=== PATIENT | female | born 1935 ===

== ENCOUNTER 2017-04-22 17:08 | Inpatient (IN) | payer MEDICARE, BC ==
[~2017-04-22] VITALS: Ht 157.5 cm; Wt 59.0 kg
[2017-04-22 16:30] VITALS: BP 149/74
[2017-04-22] MEDS ORDERED: FURO20TA4 PO (17:21)
[2017-04-22] MEDS ORDERED: LINA5TAB PO (17:21)
[2017-04-22] MEDS ORDERED: PANT40TA4 PO (17:21)
[2017-04-22] MEDS ORDERED: ATOR20TA PO (17:21)
[2017-04-22] MEDS ORDERED: VALS40TA4 PO (17:21)
[2017-04-22] MEDS ORDERED: DULO20CA PO (17:21)
[2017-04-22] MEDS ORDERED: CARV40CP PO (17:21)
[2017-04-22] MEDS ORDERED: CLOP75TA33 PO (17:21)
[2017-04-22] MEDS ORDERED: LIRA0.6P2 SUBCUT (17:21)
[2017-04-22] MEDS ORDERED: ISOS30TA6 PO (17:21)
[2017-04-22] MEDS ORDERED: ALLO100T PO (17:21)
[2017-04-22] MEDS ORDERED: PRAM0.253 PO (17:21)
[2017-04-22] MEDS ORDERED: Z GUARD REMEDY PASTE 57 GM TUBE TOP PRN (17:30)
--- NOTE | 2017-04-22 18:53 | NUR ---
pt arrived at 1630 in an ambulance. pt was transported with the use of a gurney. pt vitals bp 149/74 t 97.6 p 74 rr 18 02 97% room air. pt shown no signs of acute distress. pt is alert and oriented x4 no apparent signs of injury. all belongings reconciled. all pertinent assessments done. will continue to monitor patients for any signs of distress.
--- NOTE | 2017-04-22 19:30 | NUR ---
Report received. Patient came in today from [facility] for rehab (was in [facility] for CHF and NSTEMI). AAO, able to communicate needs fairly well. Denies pain and discomfort. Addendum: 04/23/17 at 0210 by ALEX MELGOZA RN Amended: Links added.
[2017-04-22 20:06] VITALS: BP 147/64
[2017-04-22] MEDS ORDERED: DEXTROSE 50% 50 ML DISP.SYRIN IV PRN (20:15)
[2017-04-22] MEDS: BLOOD SUGAR DIAGNOSTIC 1 EACH STRIP VI SCH (21:06)
[2017-04-22] MEDS: ATORVASTATIN 20 MG TABLET PO SCH (21:06)
--- NOTE | 2017-04-22 22:30 | NUR ---
Up to the BR with assist. Voided without difficulty. Gait steady but patient appears cautious. Advised to call for help and assistance when needing to go to the BR. Patient verbalized understanding. Addendum: 04/23/17 at 0217 by ALEX MELGOZA RN Amended: Links added.
[2017-04-23] MEDS: BLOOD SUGAR DIAGNOSTIC 1 EACH STRIP VI SCH ×4 (06:41→22:03)
--- NOTE | 2017-04-23 06:50 | NUR ---
Accucheck=82. Patient awake, skin warm and dry. [place] juice given per patient's request. NAD noted.
[2017-04-23 08:00] VITALS: BP 144/54
[2017-04-23] MEDS ORDERED: CARVEDILOL PHOSPHATE 80 MG PO SCH (09:00)
[2017-04-23 09:21] LABS: BASOPHILS # (AUTO) 0.1 K/uL (0.0-8.0); BASOPHILS % (AUTO) 0.9 % (0.0-2.0); EOSINOPHILS # (AUTO) 0.2 K/uL (0.0-0.7); EOSINOPHILS % (AUTO) 3.2 % (0.0-7.0); HEMATOCRIT 30.3 % (37-47); LYMPHOCYTES # (AUTO) 0.7 K/UL (0.8-4.8); LYMPHOCYTES % (AUTO) 11.1 % (20.5-51.5); MEAN CORPUSCULAR HEMOGLOBIN 31.5 UUG (27.0-31.0); MEAN CORPUSCULAR HGB CONC 33 g/dL (32.0-37.0); MEAN CORPUSCULAR VOLUME 95.5 FL (81.0-99.0); MONOCYTES # (AUTO) 0.4 K/UL (0.1-1.30); MONOCYTES % (AUTO) 7.2 % (0.0-11.0); NEUTROPHILS # (AUTO) 4.8 K/UL (1.8-8.9); NEUTROPHILS % (AUTO) 77.6 % (38.5-71.5); PLATELET COUNT (AUTO) 214 K/UL (150-450); RED BLOOD CELL COUNT(AUTO) 3.17 MIL/UL (4.2-5.4); WHITE BLOOD COUNT (AUTO) 6.2 K/UL (4.0-11.2)
[2017-04-23 09:35] LABS: ALANINE AMINOTRANSFERASE 16 U/L (14-59); ALKALINE PHOSPHATASE 111 U/L (50-136); ASPARTATE AMINOTRANSFERASE 26 U/L (15-37); BILIRUBIN,TOTAL 0.8 mg/dL (0.2-1.0); CARBON DIOXIDE 29 mmol/L (21-32); CHLORIDE 96 mmol/L (98-107); CREATININE 4.6 mg/dL (0.6-1.3); GLUCOSE 171 mg/dL (74-106); MAGNESIUM 2.1 mg/dL (1.8-2.4); PHOSPHOROUS 4.2 mg/dL (2.5-4.9); POTASSIUM 5.1 mmol/L (3.5-5.1); TOTAL PROTEIN, SERUM 7.6 g/dL (6.4-8.2); UREA NITROGEN, BLOOD 62 mg/dL (7-18)
[2017-04-23] MEDS: PANTOPRAZOLE SODIUM 40 MG TABLET.DR PO SCH ×2 (09:47→17:53)
[2017-04-23] MEDS: ALLOPURINOL 100 MG TABLET PO SCH (09:48)
[2017-04-23] MEDS: FUROSEMIDE 20 MG TABLET PO SCH ×2 (09:48→17:02)
[2017-04-23] MEDS: ISOSORBIDE MONONITRATE 30 MG TAB.SR.24H PO SCH (09:51)
[2017-04-23] MEDS: CARVEDILOL 25 MG TABLET PO SCH ×2 (09:51→17:07)
[2017-04-23] MEDS: VALSARTAN 40 MG TABLET PO SCH (09:52)
[2017-04-23] MEDS: DULOXETINE 20 MG CAPSULE.DR PO SCH (09:53)
[2017-04-23] MEDS: CLOPIDOGREL 75 MG TABLET PO SCH (09:53)
[2017-04-23] MEDS: PRAMIPEXOLE 0.25 MG TABLET PO SCH ×2 (09:54→17:02)
[2017-04-23] MEDS: LINAGLIPTIN 5 MG TABLET PO SCH (10:07)
[2017-04-23] MEDS: INSULIN REGULAR, HUMAN 300 UNIT/3 ML VIAL SQ PRN ×2 (12:22→17:10)
--- NOTE | 2017-04-23 13:40 | NUR ---
PT ASSESSED AND VITALS TAKEN . BP ELEVATED. PROVIDED MEDICATIONS PRESCRIBED. PT HAS NO NEW INJURIES. PT EVALUATED BY PT. ACCU CHECKS DONE AND PROVIDED INSULIN COVERAGE ORDERED. WILL CONTINUE MONITOR FOR DISTRESS.
--- NOTE | 2017-04-23 14:44 | NUR ---
Rehab Team Conference 04/23/17
--- NOTE | 2017-04-23 19:00 | NUR ---
pt continues to be stable to during shift. pt blood pressure stable. however afternoon dose of carvidelol not given due to decreased blood pressure 111/ 48s. pt states that she takes diovan 40mg instead. pt helped when needed. pt ate meals and took medications as prescribed. pt complains dizziness on transfer. pt seen by dr pierce. no new orders. will endorse to night monitor nurse.
[2017-04-23 20:00] VITALS: BP 140/64
[2017-04-23] MEDS: ATORVASTATIN 20 MG TABLET PO SCH (22:03)
[2017-04-23] MEDS: INSULIN REGULAR, HUMAN 300 UNITS/3 ML VIAL SQ PRN (22:07)
[2017-04-24] MEDS: BLOOD SUGAR DIAGNOSTIC 1 EACH STRIP VI SCH ×4 (07:01→20:45)
--- NOTE | 2017-04-24 07:15 | NUR ---
Patient complaining of 5/10 pain in right ankle. Patient says its from her arthritis and does not want pain medication for it. Will endorse to oncoming nurse for continuity of care.
--- NOTE | 2017-04-24 07:30 | NUR ---
Patient with physical therapy at this time, no distress noted, no complaints of pain.
[2017-04-24] MEDS: FUROSEMIDE 20 MG TABLET PO SCH ×2 (08:15→17:04)
[2017-04-24] MEDS: ALLOPURINOL 100 MG TABLET PO SCH (08:15)
[2017-04-24] MEDS: CLOPIDOGREL 75 MG TABLET PO SCH (08:15)
[2017-04-24] MEDS: PANTOPRAZOLE SODIUM 40 MG TABLET.DR PO SCH ×2 (08:15→17:04)
[2017-04-24] MEDS: PRAMIPEXOLE 0.25 MG TABLET PO SCH ×2 (08:15→17:04)
[2017-04-24] MEDS: LINAGLIPTIN 5 MG TABLET PO SCH (08:16)
[2017-04-24] MEDS: VALSARTAN 40 MG TABLET PO SCH (08:17)
[2017-04-24] MEDS: CARVEDILOL 25 MG TABLET PO SCH ×2 (08:17→17:34)
[2017-04-24] MEDS: ISOSORBIDE MONONITRATE 30 MG TAB.SR.24H PO SCH (08:17)
[2017-04-24 08:41] VITALS: BP 143/70
[2017-04-24] MEDS: DULOXETINE 20 MG CAPSULE.DR PO SCH (09:00)
[2017-04-24] MEDS: INSULIN REGULAR, HUMAN 300 UNIT/3 ML VIAL SQ PRN (11:46)
--- NOTE | 2017-04-24 13:20 | NUR ---
PT found sitting upright on the floor when SWEDGER was rounding. PT describes having felt dizzy prior to fall, and choosing to ambulate regardless. Call light remained within reach. PT stated she believed she used call button prior to attempting to independently ambulate to toilet, corporate legal secretary noted no calls were received during this time. Pt assessed following assistance back into bed. No distress or dizziness noted, v/s taken resulting in 127/60 bp, 69 HR, 16 RR, with family at bedside. MD notified and placed an order for XRay of coccyx. PT stable at this time, teaching regarding fall precautions implemented, with family at bedside. Will continue to monitor.
--- NOTE | 2017-04-24 18:41 | NUR ---
PT stable upon reassessment post fall. BP WNL. No new injuries or acute distress noted. XRay taken and awaiting results. PT complied with prescribed medications. Provided comfort care and safety measures, including PT teaching r/t fall precautions. Reminded PT to use call light and placed within reach. Will continue to monitor and endorse assistant shift supervisor.
--- NOTE | 2017-04-24 19:30 | NUR ---
nsg: pt received a/o x 4, in bed. denies pain or any discomfort. no acute distress noted. dvt pumps in place. bed alarm on. call light within reach. instructed pt to use call light for help.
[2017-04-24 20:00] VITALS: BP 133/67
[2017-04-24] MEDS: ATORVASTATIN 20 MG TABLET PO SCH (20:42)
--- NOTE | 2017-04-25 05:44 | NUR ---
nsg: no acute distress noted. denies discomfort. all needs attended.
[2017-04-25] MEDS: BLOOD SUGAR DIAGNOSTIC 1 EACH STRIP VI SCH ×4 (06:27→20:33)
[2017-04-25 08:00] VITALS: BP 137/54
[2017-04-25] MEDS: DULOXETINE 20 MG CAPSULE.DR PO SCH (09:00)
--- NOTE | 2017-04-25 09:15 | NUR ---
Pt awake, alert, and oriented. No s/s of any acute distress noted at this time. Pt actively engages with physical exercises with PT assistance. Pt seen by MD chrome tanner discussed BUN and creatinine levels and will continue to monitor. No new orders.
[2017-04-25] MEDS: FUROSEMIDE 20 MG TABLET PO SCH ×2 (09:18→16:51)
[2017-04-25] MEDS: CLOPIDOGREL 75 MG TABLET PO SCH (09:19)
[2017-04-25] MEDS: PANTOPRAZOLE SODIUM 40 MG TABLET.DR PO SCH ×2 (09:19→16:51)
[2017-04-25] MEDS: VALSARTAN 40 MG TABLET PO SCH (09:20)
[2017-04-25] MEDS: ALLOPURINOL 100 MG TABLET PO SCH (09:21)
[2017-04-25] MEDS: CARVEDILOL 25 MG TABLET PO SCH ×2 (09:21→17:55)
[2017-04-25] MEDS: PRAMIPEXOLE 0.25 MG TABLET PO SCH ×2 (09:22→16:51)
[2017-04-25] MEDS: ISOSORBIDE MONONITRATE 30 MG TAB.SR.24H PO SCH (09:22)
[2017-04-25] MEDS: LINAGLIPTIN 5 MG TABLET PO SCH (10:08)
[2017-04-25 10:13] LABS: ALANINE AMINOTRANSFERASE 13 U/L (14-59); ALKALINE PHOSPHATASE 106 U/L (50-136); ASPARTATE AMINOTRANSFERASE 28 U/L (15-37); BILIRUBIN,TOTAL 0.8 mg/dL (0.2-1.0); CARBON DIOXIDE 27 mmol/L (21-32); CHLORIDE 94 mmol/L (98-107); CREATININE 5.1 mg/dL (0.6-1.3); GLUCOSE 191 mg/dL (74-106); MAGNESIUM 2.1 mg/dL (1.8-2.4); PHOSPHOROUS 4.7 mg/dL (2.5-4.9); POTASSIUM 5.3 mmol/L (3.5-5.1); TOTAL PROTEIN, SERUM 7.5 g/dL (6.4-8.2); UREA NITROGEN, BLOOD 74 mg/dL (7-18)
[2017-04-25] MEDS: INSULIN REGULAR, HUMAN 300 UNIT/3 ML VIAL SQ PRN ×2 (12:09→17:29)
[2017-04-25 12:42] LABS: BASOPHILS % (AUTO) 0.6 % (0.0-2.0); EOSINOPHILS # (AUTO) 0.1 K/uL (0.0-0.7); HEMATOCRIT 27.8 % (37-47); HEMOGLOBIN 9.1 G/DL (12.0-16.0); LYMPHOCYTES # (AUTO) 0.8 K/UL (0.8-4.8); LYMPHOCYTES % (AUTO) 13.7 % (20.5-51.5); MEAN CORPUSCULAR HEMOGLOBIN 31.5 UUG (27.0-31.0); MEAN CORPUSCULAR HGB CONC 33 g/dL (32.0-37.0); MEAN CORPUSCULAR VOLUME 95.6 FL (81.0-99.0); MONOCYTES # (AUTO) 0.6 K/UL (0.1-1.30); MONOCYTES % (AUTO) 10.4 % (0.0-11.0); NEUTROPHILS # (AUTO) 4.4 K/UL (1.8-8.9); NEUTROPHILS % (AUTO) 73.3 % (38.5-71.5); PLATELET COUNT (AUTO) 219 K/UL (150-450); RED BLOOD CELL COUNT(AUTO) 2.91 MIL/UL (4.2-5.4); WHITE BLOOD COUNT (AUTO) 5.9 K/UL (4.0-11.2)
--- NOTE | 2017-04-25 13:26 | NUR ---
Curator Of Collections: SW met with pt at bedside to assess needs and provide support. Pt is an 81-year-old female admitted to ARU for weakness, functional decline and impaired mobility. Per pt, she agreed to be admitted to ARU due to MD recommendations. Pt is alert and oriented x4 and presented in a calm mood. She stated "My Doctor thought it would be a good idea for me to come and receive physical therapy." She also stated "my balance is not very good." Per pt, her goal is to "get strong" and "have strength in my legs." Pt reports to live home alone with a 24 hour caregiver. Per pt, she is not and has no children. She stated her only sibling was her brother, who is . Regardless, of no family available she reported to have a strong social support and many friends. Per pt, the only DME she utilizes at home is a cane. SW engaged in active listening. SW provided emotional support. SW provided supportive counseling related to reasons for hospitalization. SW will provide linkage to case management (home health) and resources (additional community resources).
--- NOTE | 2017-04-25 18:59 | NUR ---
Pt. has remained stable for the duration of this shift with no pain. Last v/s BP 134/58 and HR 65, BP medication given. All safety and comfort measures in place. Call light within reach. Educated Pt about ways to prevent falls. Pt. verbalizes understanding and agrees to use call light for assistance. will continue to monitor and endorse shift nurse manager of concerns.
--- NOTE | 2017-04-25 19:30 | NUR ---
Report received. Patient seen. Asleep but easily arouses to name. NAD noted. Fall precautions discussed with patient; verbalized understanding. Addendum: 04/25/17 at 2257 by ALEX MELGOZA RN Amended: Links added.
[2017-04-25 20:26] VITALS: BP 107/47
[2017-04-25] MEDS: ATORVASTATIN 20 MG TABLET PO SCH (20:32)
--- NOTE | 2017-04-25 20:35 | NUR ---
Adeeyqvsu=020; coverage given. Addendum: 04/25/17 at 2300 by ALEX MELGOZA RN Amended: Links added. Addendum: 04/25/17 at 2300 by ALEX MELGOZA RN Amended: Links added. Addendum: 04/25/17 at 2302 by ALEX MELGOZA RN Amended: Links added.
[2017-04-25] MEDS: INSULIN REGULAR, HUMAN 300 UNITS/3 ML VIAL SQ PRN (20:38)
--- NOTE | 2017-04-25 23:20 | NUR ---
Sleeping; NAD noted. On fall precautions.
[2017-04-26] MEDS: BLOOD SUGAR DIAGNOSTIC 1 EACH STRIP VI SCH ×4 (06:22→20:59)
--- NOTE | 2017-04-26 06:30 | NUR ---
Slept well during the night. NAD noted. Accucheck=92.
[2017-04-26 07:30] VITALS: BP 142/65
[2017-04-26] MEDS: FUROSEMIDE 20 MG TABLET PO SCH (08:55)
[2017-04-26] MEDS: PRAMIPEXOLE 0.25 MG TABLET PO SCH ×2 (08:55→16:57)
[2017-04-26] MEDS: ALLOPURINOL 100 MG TABLET PO SCH (08:55)
[2017-04-26] MEDS: VALSARTAN 40 MG TABLET PO SCH (08:56)
[2017-04-26] MEDS: CLOPIDOGREL 75 MG TABLET PO SCH (08:56)
[2017-04-26] MEDS: DULOXETINE 20 MG CAPSULE.DR PO SCH (08:56)
[2017-04-26] MEDS: LINAGLIPTIN 5 MG TABLET PO SCH (08:56)
[2017-04-26] MEDS: PANTOPRAZOLE SODIUM 40 MG TABLET.DR PO SCH ×2 (08:56→16:57)
[2017-04-26] MEDS: CARVEDILOL 25 MG TABLET PO SCH ×2 (08:56→17:26)
[2017-04-26] MEDS: ISOSORBIDE MONONITRATE 30 MG TAB.SR.24H PO SCH (08:56)
[2017-04-26 09:29] VITALS: BP 148/54
[2017-04-26] MEDS: INSULIN REGULAR, HUMAN 300 UNIT/3 ML VIAL SQ PRN (11:37)
[2017-04-26 20:57] VITALS: BP 121/56
[2017-04-26] MEDS: ATORVASTATIN 20 MG TABLET PO SCH (20:58)
[2017-04-26] MEDS: VOLTAREN GEL TOP PRN (23:39)
[2017-04-27] MEDS: BLOOD SUGAR DIAGNOSTIC 1 EACH STRIP VI SCH ×4 (07:15→20:58)
[2017-04-27 07:25] VITALS: BP 142/65
[2017-04-27 07:49] LABS: ALANINE AMINOTRANSFERASE 15 U/L (14-59); ALKALINE PHOSPHATASE 101 U/L (50-136); ASPARTATE AMINOTRANSFERASE 24 U/L (15-37); BILIRUBIN,TOTAL 0.7 mg/dL (0.2-1.0); CARBON DIOXIDE 27 mmol/L (21-32); CHLORIDE 96 mmol/L (98-107); GLUCOSE 83 mg/dL (74-106); MAGNESIUM 1.8 mg/dL (1.8-2.4); PHOSPHOROUS 4.8 mg/dL (2.5-4.9); POTASSIUM 5.1 mmol/L (3.5-5.1); TOTAL PROTEIN, SERUM 6.7 g/dL (6.4-8.2); UREA NITROGEN, BLOOD 74 mg/dL (7-18)
[2017-04-27 08:01] LABS: BASOPHILS % (AUTO) 0.6 % (0.0-2.0); EOSINOPHILS # (AUTO) 0.3 K/uL (0.0-0.7); EOSINOPHILS % (AUTO) 6.4 % (0.0-7.0); HEMATOCRIT 26.1 % (37-47); HEMOGLOBIN 8.6 G/DL (12.0-16.0); LYMPHOCYTES # (AUTO) 1.2 K/UL (0.8-4.8); LYMPHOCYTES % (AUTO) 22.4 % (20.5-51.5); MEAN CORPUSCULAR HEMOGLOBIN 31.6 UUG (27.0-31.0); MEAN CORPUSCULAR HGB CONC 33 g/dL (32.0-37.0); MONOCYTES # (AUTO) 0.8 K/UL (0.1-1.30); MONOCYTES % (AUTO) 15.1 % (0.0-11.0); NEUTROPHILS % (AUTO) 55.5 % (38.5-71.5); PLATELET COUNT (AUTO) 220 K/UL (150-450); RED BLOOD CELL COUNT(AUTO) 2.72 MIL/UL (4.2-5.4); WHITE BLOOD COUNT (AUTO) 5.3 K/UL (4.0-11.2)
[2017-04-27] MEDS: PANTOPRAZOLE SODIUM 40 MG TABLET.DR PO SCH ×2 (08:05→17:12)
[2017-04-27] MEDS: CLOPIDOGREL 75 MG TABLET PO SCH (08:05)
[2017-04-27] MEDS: ALLOPURINOL 100 MG TABLET PO SCH (08:05)
[2017-04-27] MEDS: LINAGLIPTIN 5 MG TABLET PO SCH (08:05)
[2017-04-27] MEDS: PRAMIPEXOLE 0.25 MG TABLET PO SCH ×2 (08:06→17:12)
[2017-04-27] MEDS: DULOXETINE 20 MG CAPSULE.DR PO SCH (08:06)
[2017-04-27] MEDS: ISOSORBIDE MONONITRATE 30 MG TAB.SR.24H PO SCH (08:06)
[2017-04-27] MEDS: CARVEDILOL 25 MG TABLET PO SCH ×2 (08:07→17:17)
[2017-04-27] MEDS: INSULIN REGULAR, HUMAN 300 UNIT/3 ML VIAL SQ PRN (11:20)
[2017-04-27] MEDS ORDERED: MIRALAX 17 GM POWD.PACK PO PRN (11:45)
[2017-04-27 11:58] LABS: BAND % (MANUAL) 2 % (0-10); BASOPHILS % (MANUAL) 2 % (0-2); EOSINOPHILS % (MANUAL) 7 % (0-8); LYMPHOCYTES % (MANUAL) 19 % (20-40); MONOCYTES % (MANUAL) 15 % (2-10); NEUTROPHILS % (MANUAL) 55 % (42-75)
--- NOTE | 2017-04-27 12:30 | NUR ---
Spoke with Dr. Yeung and aware of pt's recent rising BUN/Cr levels and pt's complaint of constipation. New orders received and carried out.
[2017-04-27 20:00] VITALS: BP 104/46
[2017-04-27] MEDS: ATORVASTATIN 20 MG TABLET PO SCH (20:55)
[2017-04-28] MEDS: BLOOD SUGAR DIAGNOSTIC 1 EACH STRIP VI SCH ×4 (06:37→21:46)
[2017-04-28 07:25] VITALS: BP 126/63
[2017-04-28 07:47] LABS: BASOPHILS % (AUTO) 0.5 % (0.0-2.0); EOSINOPHILS # (AUTO) 0.1 K/uL (0.0-0.7); EOSINOPHILS % (AUTO) 2.5 % (0.0-7.0); HEMATOCRIT 29.1 % (37-47); HEMOGLOBIN 9.4 G/DL (12.0-16.0); LYMPHOCYTES % (AUTO) 18.5 % (20.5-51.5); MEAN CORPUSCULAR HEMOGLOBIN 30.5 UUG (27.0-31.0); MEAN CORPUSCULAR HGB CONC 32 g/dL (32.0-37.0); MEAN CORPUSCULAR VOLUME 94.7 FL (81.0-99.0); MONOCYTES # (AUTO) 0.7 K/UL (0.1-1.30); MONOCYTES % (AUTO) 12.8 % (0.0-11.0); NEUTROPHILS # (AUTO) 3.8 K/UL (1.8-8.9); NEUTROPHILS % (AUTO) 65.7 % (38.5-71.5); PLATELET COUNT (AUTO) 221 K/UL (150-450); RED BLOOD CELL COUNT(AUTO) 3.08 MIL/UL (4.2-5.4); WHITE BLOOD COUNT (AUTO) 5.7 K/UL (4.0-11.2)
--- NOTE | 2017-04-28 08:00 | NUR ---
Pt. seen and assessed. No acute distress noted at this time. All safety and comfort measures implemented. Fall precautions reviewed, Pt confirms will utilize call light for assistance. Will continue to monitor.
[2017-04-28 08:06] LABS: ALANINE AMINOTRANSFERASE 20 U/L (14-59); ALKALINE PHOSPHATASE 108 U/L (50-136); ASPARTATE AMINOTRANSFERASE 29 U/L (15-37); BILIRUBIN,TOTAL 0.7 mg/dL (0.2-1.0); CARBON DIOXIDE 26 mmol/L (21-32); CHLORIDE 95 mmol/L (98-107); CREATININE 5.1 mg/dL (0.6-1.3); GLUCOSE 103 mg/dL (74-106); PHOSPHOROUS 5.5 mg/dL (2.5-4.9); TOTAL PROTEIN, SERUM 7.2 g/dL (6.4-8.2); UREA NITROGEN, BLOOD 79 mg/dL (7-18)
--- NOTE | 2017-04-28 08:24 | NUR ---
Received critical lab value from Stephen in the lab of Potassium 6.[address] Yeung notified. No new orders to take action at this time. Will continue to monitor.
[2017-04-28] MEDS: DULOXETINE 20 MG CAPSULE.DR PO SCH (09:00)
[2017-04-28] MEDS: PANTOPRAZOLE SODIUM 40 MG TABLET.DR PO SCH ×2 (09:28→17:23)
[2017-04-28] MEDS: ALLOPURINOL 100 MG TABLET PO SCH (09:29)
[2017-04-28] MEDS: CLOPIDOGREL 75 MG TABLET PO SCH (09:29)
[2017-04-28] MEDS: ISOSORBIDE MONONITRATE 30 MG TAB.SR.24H PO SCH (09:31)
[2017-04-28] MEDS: CARVEDILOL 25 MG TABLET PO SCH ×2 (09:31→17:35)
[2017-04-28] MEDS: PRAMIPEXOLE 0.25 MG TABLET PO SCH ×2 (09:32→17:23)
[2017-04-28] MEDS: LINAGLIPTIN 5 MG TABLET PO SCH (09:33)
[2017-04-28] MEDS ORDERED: SODIUM POLYSTYRENE SULFONATE 15 G/60 ML LIQUID UDC PO ONE (10:00)
[2017-04-28] MEDS ORDERED: FUROSEMIDE 20 MG TABLET PO ONE (10:00)
[2017-04-28] MEDS: INSULIN REGULAR, HUMAN 300 UNIT/3 ML VIAL SQ PRN ×2 (11:45→17:26)
[2017-04-28 14:26] LABS: CARBON DIOXIDE 27 mmol/L (21-32); CHLORIDE 96 mmol/L (98-107); CREATININE 5.2 mg/dL (0.6-1.3); GLUCOSE 181 mg/dL (74-106); POTASSIUM 4.8 mmol/L (3.5-5.1); UREA NITROGEN, BLOOD 76 mg/dL (7-18)
--- NOTE | 2017-04-28 18:49 | NUR ---
pt asymptomatic during shift. md notified about increased level of potassium and bun levels. pt given kayexalate lasix. bmp reordered. pt potassium decreased. pt participated in therapy. took meds as prescribed. bp more stable compared to trends. md noted about pts lab values. md will follow up. no new injuries noted. pt instructed to use call light as needed. urine sample still needed for pending orders. will endorse to traffic or system dispatcher nurse.
[2017-04-28 20:15] VITALS: BP 144/58
[2017-04-28 20:15] LABS: *CHLORIDE RNDM,URINE 37 mmol/L (100-250); *POTASSIUM RNDM,URINE 36 mmol/L (25-125)
[2017-04-28] MEDS: ATORVASTATIN 20 MG TABLET PO SCH (21:46)
--- NOTE | 2017-04-28 22:29 | NUR ---
Received patient resting in bed comfortably. No pain or distress reported by patient when asked. Respirations are unlabored. Patient has skin tear on right knee but no pain. Skin tear is clean and dressed. Handoff report received @2210. Will continue to monitor closely
[2017-04-29] MEDS: VOLTAREN GEL TOP PRN ×2 (03:04→20:46)
[2017-04-29] MEDS: BLOOD SUGAR DIAGNOSTIC 1 EACH STRIP VI SCH ×4 (06:57→20:49)
[2017-04-29 07:30] VITALS: BP 142/62
[2017-04-29 07:43] LABS: ALANINE AMINOTRANSFERASE 20 U/L (14-59); ALKALINE PHOSPHATASE 102 U/L (50-136); ASPARTATE AMINOTRANSFERASE 28 U/L (15-37); BILIRUBIN,TOTAL 0.7 mg/dL (0.2-1.0); CARBON DIOXIDE 27 mmol/L (21-32); CHLORIDE 97 mmol/L (98-107); CHOLESTEROL 101 mg/dL (<200); GLUCOSE 87 mg/dL (74-106); HDL CHOLESTEROL 45 mg/dL (40-60); MAGNESIUM 1.8 mg/dL (1.8-2.4); PHOSPHOROUS 5.3 mg/dL (2.5-4.9); POTASSIUM 4.7 mmol/L (3.5-5.1); TOTAL PROTEIN, SERUM 6.5 g/dL (6.4-8.2); TRIGLYCERIDES 79 MG/DL (30-150); UREA NITROGEN, BLOOD 71 mg/dL (7-18)
[2017-04-29 07:52] LABS: BASOPHILS % (AUTO) 0.6 % (0.0-2.0); EOSINOPHILS # (AUTO) 0.3 K/uL (0.0-0.7); EOSINOPHILS % (AUTO) 5.6 % (0.0-7.0); HEMOGLOBIN 8.3 G/DL (12.0-16.0); LYMPHOCYTES # (AUTO) 1.3 K/UL (0.8-4.8); LYMPHOCYTES % (AUTO) 27.2 % (20.5-51.5); MEAN CORPUSCULAR HEMOGLOBIN 30.5 UUG (27.0-31.0); MEAN CORPUSCULAR HGB CONC 32 g/dL (32.0-37.0); MEAN CORPUSCULAR VOLUME 95.1 FL (81.0-99.0); MONOCYTES # (AUTO) 0.8 K/UL (0.1-1.30); MONOCYTES % (AUTO) 17.4 % (0.0-11.0); NEUTROPHILS # (AUTO) 2.3 K/UL (1.8-8.9); NEUTROPHILS % (AUTO) 49.2 % (38.5-71.5); PLATELET COUNT (AUTO) 209 K/UL (150-450); WHITE BLOOD COUNT (AUTO) 4.7 K/UL (4.0-11.2)
[2017-04-29 07:59] LABS: RED BLOOD CELL COUNT(AUTO) 2.73 MIL/UL (4.2-5.4)
[2017-04-29] MEDS: PRAMIPEXOLE 0.25 MG TABLET PO SCH ×2 (09:20→16:41)
[2017-04-29] MEDS: CLOPIDOGREL 75 MG TABLET PO SCH (09:20)
[2017-04-29] MEDS: ISOSORBIDE MONONITRATE 30 MG TAB.SR.24H PO SCH (09:20)
[2017-04-29] MEDS: ALLOPURINOL 100 MG TABLET PO SCH (09:20)
[2017-04-29] MEDS: CARVEDILOL 25 MG TABLET PO SCH ×2 (09:20→17:02)
[2017-04-29] MEDS: DULOXETINE 20 MG CAPSULE.DR PO SCH (09:20)
[2017-04-29] MEDS: PANTOPRAZOLE SODIUM 40 MG TABLET.DR PO SCH ×2 (09:20→16:41)
[2017-04-29 09:43] LABS: BASOPHILS % (MANUAL) 1 % (0-2); EOSINOPHILS % (MANUAL) 7 % (0-8); LYMPHOCYTES % (MANUAL) 21 % (20-40); MONOCYTES % (MANUAL) 16 % (2-10); NEUTROPHILS % (MANUAL) 55 % (42-75)
[2017-04-29] MEDS: LINAGLIPTIN 5 MG TABLET PO SCH (09:57)
[2017-04-29] MEDS: INSULIN REGULAR, HUMAN 300 UNIT/3 ML VIAL SQ PRN (12:24)
--- NOTE | 2017-04-29 18:34 | NUR ---
Patient had therapy sessions today and tolerated well. Continuously reminded to push call light when she needs assistance. Patient demonstrated good understanding. Minimal assist with transfers and ambulation.
--- NOTE | 2017-04-29 19:24 | NUR ---
Received patient resting in bed watching television. No signs of distress noted. Respirations are unlabored. Patient is A&Ox3 and able to verbalize needs. No pain reported by patient when asked. Bed in lowest position with 3/4 side rails up ,and bed alarm active for safety. Call light within reach. Will continue to monitor
[2017-04-29 20:16] VITALS: BP 130/50
[2017-04-29] MEDS: ATORVASTATIN 20 MG TABLET PO SCH (20:46)
[2017-04-30] MEDS: BLOOD SUGAR DIAGNOSTIC 1 EACH STRIP VI SCH ×4 (06:53→21:08)
[2017-04-30 07:51] LABS: BASOPHILS % (AUTO) 0.9 % (0.0-2.0); EOSINOPHILS # (AUTO) 0.3 K/uL (0.0-0.7); EOSINOPHILS % (AUTO) 7.9 % (0.0-7.0); HEMATOCRIT 25.8 % (37-47); HEMOGLOBIN 8.6 G/DL (12.0-16.0); LYMPHOCYTES # (AUTO) 1.2 K/UL (0.8-4.8); LYMPHOCYTES % (AUTO) 28.1 % (20.5-51.5); MEAN CORPUSCULAR HEMOGLOBIN 31.3 UUG (27.0-31.0); MEAN CORPUSCULAR HGB CONC 33 g/dL (32.0-37.0); MEAN CORPUSCULAR VOLUME 94.4 FL (81.0-99.0); MONOCYTES # (AUTO) 0.8 K/UL (0.1-1.30); MONOCYTES % (AUTO) 18.1 % (0.0-11.0); NEUTROPHILS # (AUTO) 2.1 K/UL (1.8-8.9); PLATELET COUNT (AUTO) 206 K/UL (150-450); RED BLOOD CELL COUNT(AUTO) 2.73 MIL/UL (4.2-5.4); WHITE BLOOD COUNT (AUTO) 4.4 K/UL (4.0-11.2)
[2017-04-30] MEDS: CARVEDILOL 25 MG TABLET PO SCH ×2 (07:52→17:48)
[2017-04-30] MEDS: ALLOPURINOL 100 MG TABLET PO SCH (08:04)
[2017-04-30] MEDS: LINAGLIPTIN 5 MG TABLET PO SCH (08:04)
[2017-04-30] MEDS: PANTOPRAZOLE SODIUM 40 MG TABLET.DR PO SCH ×2 (08:04→17:49)
[2017-04-30] MEDS: CLOPIDOGREL 75 MG TABLET PO SCH (08:04)
[2017-04-30] MEDS: DULOXETINE 20 MG CAPSULE.DR PO SCH (08:04)
[2017-04-30] MEDS: ISOSORBIDE MONONITRATE 30 MG TAB.SR.24H PO SCH (08:05)
[2017-04-30] MEDS: PRAMIPEXOLE 0.25 MG TABLET PO SCH ×2 (08:05→17:49)
[2017-04-30 08:07] LABS: ALANINE AMINOTRANSFERASE 18 U/L (14-59); ALKALINE PHOSPHATASE 94 U/L (50-136); ASPARTATE AMINOTRANSFERASE 30 U/L (15-37); BILIRUBIN,TOTAL 0.7 mg/dL (0.2-1.0); CARBON DIOXIDE 27 mmol/L (21-32); CHLORIDE 100 mmol/L (98-107); CREATININE 4.9 mg/dL (0.6-1.3); GLUCOSE 100 mg/dL (74-106); MAGNESIUM 1.8 mg/dL (1.8-2.4); PHOSPHOROUS 5.7 mg/dL (2.5-4.9); POTASSIUM 3.7 mmol/L (3.5-5.1); TOTAL PROTEIN, SERUM 6.4 g/dL (6.4-8.2); UREA NITROGEN, BLOOD 65 mg/dL (7-18)
[2017-04-30 08:19] VITALS: BP 158/48
[2017-04-30 09:50] LABS: EOSINOPHILS % (MANUAL) 6 % (0-8); LYMPHOCYTES % (MANUAL) 31 % (20-40); MONOCYTES % (MANUAL) 13 % (2-10); NEUTROPHILS % (MANUAL) 50 % (42-75)
[2017-04-30] MEDS: INSULIN REGULAR, HUMAN 300 UNIT/3 ML VIAL SQ PRN ×2 (12:23→21:10)
--- NOTE | 2017-04-30 14:28 | NUR ---
Interdisciplinary Team Summary
--- NOTE | 2017-04-30 18:22 | NUR ---
Patient had an episode of hypoglycemia. Blood sugar was initially 20. [place] juice and cola given. Patient sweating, unable to open eyes on command. Blood sugar rechecked: 50. IV line inserted to administer PRN dose of Dextrose 50%. 24 gauge inserted to right hand and D50% given. Blood sugar rechecked and is 253. Primary MD called and message left with answering service for request to call back. Blood pressure medication held due to BP 104/47 and patient very lethargic. Patient is now able to open eyes on command and responsive to questions pertaining to orientation. Patient c/o nausea. Waiting for MD to call back and will inform of situation. Frequent rounding on patient to ensure safety.
--- NOTE | 2017-04-30 18:44 | NUR ---
MD returned phone call and informed of situation. No new orders. Just continue to monitor patient.
--- NOTE | 2017-04-30 20:00 | NUR ---
RECEIVED PT AWAKE, ALERT & ORIENTED X3. DENIES PAIN. NOT IN ANY DISTRESS.
[2017-04-30 20:05] VITALS: BP 151/77
[2017-04-30] MEDS: ATORVASTATIN 20 MG TABLET PO SCH (21:08)
--- NOTE | 2017-04-30 21:30 | NUR ---
HS SNACK GIVEN. ASSISTED TO BATH RM TO VOID.
--- NOTE | 2017-05-01 | NUR ---
SLEEPING WELL AT THIS TIME.
--- NOTE | 2017-05-01 06:12 | NUR ---
AWAKE, DENIES PAIN. NOT IN ANY DISTRESS.
[2017-05-01] MEDS: BLOOD SUGAR DIAGNOSTIC 1 EACH STRIP VI SCH ×4 (06:39→20:44)
--- NOTE | 2017-05-01 08:00 | NUR ---
Received patient awake, alert, verbally responsive, not in any form of acute distress. She denies any pain or discomfort at this time. Environmental check for safety done. Call light placed within reach and reminded to use call light for assistance with verbalized understanding.
[2017-05-01 08:26] VITALS: BP 106/55
[2017-05-01] MEDS: CLOPIDOGREL 75 MG TABLET PO SCH (09:02)
[2017-05-01] MEDS: DULOXETINE 20 MG CAPSULE.DR PO SCH (09:02)
[2017-05-01] MEDS: PANTOPRAZOLE SODIUM 40 MG TABLET.DR PO SCH ×2 (09:02→17:56)
[2017-05-01] MEDS: ALLOPURINOL 100 MG TABLET PO SCH (09:02)
[2017-05-01] MEDS: LINAGLIPTIN 5 MG TABLET PO SCH (09:02)
[2017-05-01] MEDS: PRAMIPEXOLE 0.25 MG TABLET PO SCH ×2 (09:02→17:56)
[2017-05-01] MEDS: ISOSORBIDE MONONITRATE 30 MG TAB.SR.24H PO SCH (09:09)
[2017-05-01] MEDS: CARVEDILOL 25 MG TABLET PO SCH ×2 (09:10→17:58)
[2017-05-01] MEDS: INSULIN REGULAR, HUMAN 300 UNIT/3 ML VIAL SQ PRN (12:00)
[2017-05-01 20:00] VITALS: BP 133/48
--- NOTE | 2017-05-01 20:00 | NUR ---
RECEIVED PT AWAKE, ALERT & ORIENTED X3. HEP LOCK INTACT ON R HAND INTACT & PATENT. NOT IN ANY DISTRESS.
[2017-05-01] MEDS: ATORVASTATIN 20 MG TABLET PO SCH (20:39)
--- NOTE | 2017-05-02 06:29 | NUR ---
AM CARE DONE. REPOSITIONED W/ HOB ELEVATED. NOT IN ANY DISTRESS.
[2017-05-02] MEDS: BLOOD SUGAR DIAGNOSTIC 1 EACH STRIP VI SCH ×2 (06:42→11:42)
[2017-05-02 07:59] VITALS: BP 123/44
--- NOTE | 2017-05-02 08:00 | NUR ---
Received patient awake, up on the chair, verbally responsive, not in any form of acute distress. No complain of pain or discomfort. Call light placed within reach. Assisted to her needs.
[2017-05-02] MEDS: CLOPIDOGREL 75 MG TABLET PO SCH (08:32)
[2017-05-02] MEDS: LINAGLIPTIN 5 MG TABLET PO SCH (08:32)
[2017-05-02] MEDS: PRAMIPEXOLE 0.25 MG TABLET PO SCH (08:32)
[2017-05-02] MEDS: DULOXETINE 20 MG CAPSULE.DR PO SCH (08:35)
[2017-05-02] MEDS: ISOSORBIDE MONONITRATE 30 MG TAB.SR.24H PO SCH (08:35)
[2017-05-02] MEDS: ALLOPURINOL 100 MG TABLET PO SCH (08:35)
[2017-05-02 08:36] VITALS: BP 122/54
[2017-05-02] MEDS: PANTOPRAZOLE SODIUM 40 MG TABLET.DR PO SCH (08:36)
[2017-05-02] MEDS: CARVEDILOL 25 MG TABLET PO SCH (08:36)
[2017-05-02] MEDS: INSULIN REGULAR, HUMAN 300 UNIT/3 ML VIAL SQ PRN (11:49)
--- NOTE | 2017-05-02 13:00 | NUR ---
Dr. Yeung called and he suggested to continue all home medications which the patient already have at home
--- NOTE | 2017-05-02 14:00 | NUR ---
Received discharge to home order from Dr. Dave. Order carried out. Patient aware.
--- NOTE | 2017-05-02 16:54 | NUR ---
Discharge instructions provided to patient with verbalized understanding. Patient remains alert, verbally responsive, coherent, afebrile, not in any form of acute distress. She denies any pain or discomfort. BP 128/67, P 72, RR 16, T 97.6, SpO2 97%. All belongings sent home with patient. Patient picked up by friend Lorie via private car. Assisted to parking lot by RADIOCOMMUNICATIONS TECHNICIAN via wheelchair.
== END 2017-05-02 19:00 | disposition home health service (06) | DRG 280 ==
PROVIDERS: ADMIT Physical Medicine & Rehabilitation Pain Medicine; ATTEND Physical Medicine & Rehabilitation Pain Medicine
DX: I21.4 Non-ST elevation (NSTEMI) myocardial infarction (principal); N17.0 Acute kidney failure with tubular necrosis; I50.43 Acute on chronic combined systolic (congestive) and diastolic (congestive) heart failure; N18.4 Chronic kidney disease, stage 4 (severe); D68.59 Other primary thrombophilia; E11.22 Type 2 diabetes mellitus with diabetic chronic kidney disease; E11.51 Type 2 diabetes mellitus with diabetic peripheral angiopathy without gangrene; E22.2 Syndrome of inappropriate secretion of antidiuretic hormone; E11.65 Type 2 diabetes mellitus with hyperglycemia; I13.0 Hypertensive heart and chronic kidney disease with heart failure and stage 1 through stage 4 chronic kidney disease, or unspecified chronic kidney disease; D63.8 Anemia in other chronic diseases classified elsewhere; E78.5 Hyperlipidemia, unspecified; F32.9 Major depressive disorder, single episode, unspecified; I25.10 Atherosclerotic heart disease of native coronary artery without angina pectoris; M10.9 Gout, unspecified; R26.9 Unspecified abnormalities of gait and mobility; E87.5 Hyperkalemia; M19.90 Unspecified osteoarthritis, unspecified site; Z87.01 Personal history of pneumonia (recurrent); Z95.5 Presence of coronary angioplasty implant and graft; Z88.6 Allergy status to analgesic agent; Z88.1 Allergy status to other antibiotic agents
CPT/HCPCS: 36415; 72220; 83735; 84100; 84133; 84300; 85025; 92526; 92610; 93005; 97110; 97112; 97116; 97530; 97535; A4663; J1815